=== PATIENT | male | born 2000 | race Caucasian/White ===

== ENCOUNTER 2022-08-24 11:26 | Emergency (ER) | payer OTHER, SELFPAY ==
--- NOTE | ~2022-08-24 | XR_ITS ---
XR chest 2V DATE: 08/24/2022 12:44 INDICATION: Nonproductive cough. Left-sided chest pain. Smoker. TECHNIQUE: 2 views COMPARISON: None FINDINGS: Normal heart size. No hilar or mediastinal enlargement. No pulmonary infiltrate or consolid ation, pleural effusion or pulmonary vascular congestion or pneumothorax is detected. Included skelet al structures appear normal. IMPRESSION: Negative Reviewed, dictated and finalized at location A. IMPRESSION: Negative
[2022-08-24 11:48] VITALS: BP 129/82; PULSE 102; RESP 16; TEMP 37.1; O2SAT 98
--- NOTE | 2022-08-24 11:51 | ED.GENADULT ---
HPI - General Adult General Chief complaint: Upper Respiratory Infection Stated complaint: Body aches /SOB Source: patient, family and RN notes reviewed History of Present Illness HPI narrative: 22 yo M presents to urgent care with sister at side. Pt states he has been having lower, left, sided chest pain that radiates to his left back. Pt states he typically drinks a 1/5 of whiskey daily since 2018 since his father . Pt states he quit drinking 9 days ago and was vomiting and having diarrhea which did resolve last week. Pt states he has been having cold sweats ever since. Pt reports the left sided chest pain is worse with deep inhalation and cough. Pt reports he is a violent puker and doesn't know if this pain is from that. Pt denies any abdominal pain. Pt states he had a sore throat last week but nothing since. Pt's father did of pancreatitis according to pt. Denies any leg pain or swelling. Related Data Home Medications Medication Instructions Recorded Confirmed No Home Medications 08/24/22 08/24/22 Allergies Allergy/AdvReac Type Severity Reaction Status Date / Time No Known Allergies Allergy Mild Verified 08/24/22 12:00 Review of Systems Review of Systems: Pertinent positives and pertinent negatives per HPI. PMFSH Comments At the time of my signature, I reviewed and agree with the nursing past medical, surgical, social, and family history. There is no relevant family history pertinent to the patient complaint. Exam Narrative: GENERAL: This is a well-nourished, well-developed patient, in no apparent distress. HEAD: normocephalic, atraumatic. EYES: Sclera clear/white. Vision is grossly intact. EARS: External ears normal, auditory canals clear and without drainage. Hearing grossly intact. NOSE: External nose normal with no obvious nasal discharge, nares without redness, no rhinorrhea. THROAT: Mucous membranes moist, posterior pharynx erythremic. NECK: Neck supple, non-tender without lymphadenopathy, masses or thyromegaly. CARDIOVASCULAR: Regular rate and rhythm without murmurs, gallops, or rubs. RESPIRATORY: Clear to auscultation. Breath sounds demonstrate mild wheezing to left anterior. GASTROINTESTINAL: Abdomen soft, non-tender, nondistended. Bowel sounds are active. No hepato-splenomegaly, or palpable masses. No guarding. SKIN: warm, intact with no suspicious lesions or rash, good texture and turgor. NEURO: awake, alert, and oriented to person, place and time. There were no obvious focal neurologic abnormalities. EXTREMITIES: No clubbing, cyanosis, or edema. No joint tenderness, effusion, or edema noted. BACK: Nontender without deformity or crepitus. No flank tenderness. Course Course Level of Care: Express Care Visit Vital Signs Vital signs: Vital Signs Temperature 98.8 F 08/24/22 11:48 Pulse Rate 102 H 08/24/22 11:48 Respiratory Rate 16 08/24/22 11:48 Blood Pressure 129/82 08/24/22 11:48 Pulse Oximetry 98 08/24/22 11:48 Oxygen Delivery Room Air 08/24/22 11:48 Temperature 98.8 F 08/24/22 11:48 Pulse Rate 102 H 08/24/22 11:48 Respiratory Rate 16 08/24/22 11:48 Blood Pressure 129/82 08/24/22 11:48 Pulse Oximetry 98 08/24/22 11:48 Oxygen Delivery Room Air 08/24/22 11:48 Reviewed Medical Decision Making MDM Narrative Medical decision making narrative: CXR is negative. Pt continues to take deep breaths intermittently while talking to him. Discussed reasons why ER transfer is recommended including PE and pancreatitis evaluation. Pt and sister agree to plan of care. VSS. Pt will be driven by sister. Differential Diagnosis Differential Diagnosis: PNA, PE, pancreatitis, pleurisy Vital Signs Vital Signs: Vital Signs Temperature 98.8 F 08/24/22 11:48 Pulse Rate 102 H 08/24/22 11:48 Respiratory Rate 16 08/24/22 11:48 Blood Pressure 129/82 08/24/22 11:48 Pulse Oximetry 98 08/24/22 11:48 Oxygen Delivery Elina
--- NOTE | 2022-08-24 12:43 | PC.NURSE ---
upon initial exam, sibling at bedside and aware of need for further f/u and was given referral booklet and sheets, sibling concerned with alcohol use and pancreatitis.
== END 2022-08-24 13:03 | disposition short-term general hospital (02) ==
PROVIDERS: Emergency Provider Nurse Practitioner Family
DX: R06.00 Dyspnea, unspecified (principal); F10.90 Alcohol use, unspecified, uncomplicated
CPT/HCPCS: 71046; 99213; G0463

== ENCOUNTER 2022-08-24 13:20 | Emergency (ER) | payer OTHER, SELFPAY ==
[2022-08-24] VITALS (29 sets, daily range): BP systolic 119–144; BP diastolic 76–92; PULSE 88–110; RESP 6–23; TEMP 36.8; O2SAT 95–100
--- NOTE | ~2022-08-24 | CT_ITS ---
EXAMINATION: CTA chest PE abdomen pel DATE: 08/24/2022 15:29 CDT INDICATION: Chest pain with inspiration. Rib pain. TECHNIQUE: Computed tomographic angiography (CTA) of the chest, abdomen, and pelvis was performed wit hout and with 100 mL Omnipaque-350 intravenous contrast. The dose-length product was 1497.51 mGy-cm. Maximum intensity projection 3D-reconstructions of the aorta and other arteries were constructed by juan pabon technologist on a separate workstation. Automated exposure control and iterative reconstruction te chelidiaque were employed. COMPARISON: None. FINDINGS: CHEST CTA: There is left lower lobe consolidation, consistent with pneumonia. No large central pulmonary embolis m. Heart size normal. No evidence for aortic aneurysm or dissection. No significant pleural or perica rdial effusion. There is mediastinal and left hilar lymphadenopathy, likely reactive.No endobronchial lesions. No pneumothorax. No acute osseous abnormality. Mild levoscoliosis of the lower thoracic spi ne. ABDOMEN AND PELVIS CTA: The liver, spleen, pancreas, adrenal glands and kidneys are unremarkable. No evidence for aortic aneu rysm. Nonobstructive bowel pattern. No free air or free fluid. Gallbladder is present. No abnormal pe lvic masses or fluid collections. There is an L4 limbus vertebra. IMPRESSION: 1. Left lower lobe pneumonia. Reviewed, dictated and finalized at location A.
--- NOTE | 2022-08-24 13:21 | ECG_ITS ---
Measurements Intervals Arthur Rate: 100 P: 48 SC: 145 QRS: 14 QRSD: 86 T: 10 QT: 325 QTc: 420 Interpretive Statements SINUS TACHYCARDIA POSSIBLE LEFT ATRIAL ENLARGEMENT [-0.1mV P-WAVE IN V1/V2] POSSIBLE RIGHT VENTRICULAR CONDUCTION DELAY [RSR (QR) IN V1/V2] ABNORMAL ECG NO PREVIOUS ECG AVAILABLE FOR COMPARISON Electronically Signed On 08-25-2022 9:08:42 CDT by Mark Rudd M.D.
--- NOTE | 2022-08-24 13:52 | ED.GENADULT ---
HPI - General Adult General Chief complaint: Chest Pain Stated complaint: chest pain Time Seen by Provider: 08/24/22 13:24 Source: patient and RN notes reviewed Mode of arrival: ambulatory Limitations: no limitations History of Present Illness HPI narrative: THis is a 22 year old male who presents for evaluation of left side abdominal pain. Patient states 9 days ago he developed flu like symptoms with nausea, vomiting, cough and body aches. HE has also been having left side abdominal pain as well. His pain is sharp and it is worse with breathing and coughing. He has been taking ibuprofen for his pain, and it has been relieving his pain until today. His pain is now constant. He has not had any nausea, vomiting, diarrhea in 7 days . He denies fever or chills. He states that his urine does seem dark. He reports his father of pancreatitis . He was drinking alcohol heavily until 9 days ago when he became sick. He has not had any alcohol in 9 days. He rates his pain 6/10. Related Data Allergies Allergy/AdvReac Type Severity Reaction Status Date / Time No Known Allergies Allergy Mild Verified 08/24/22 12:00 Review of Systems Constitutional: Constitutional: Denies weakness Cardiovascular: Cardiovascular: Denies syncope, Denies rapid heart rate, Denies irregular heart rhythm, Denies leg edema and Denies dyspnea Respiratory: Respiratory: Denies chest congestion, Reports cough, Denies hemoptysis, Denies excessive phlegm production and Denies dyspnea Gastrointestinal: Gastrointestinal: Reports abdominal pain, Denies hematochezia, Reports diarrhea, Reports nausea and Reports vomiting Genitourinary: Genitourinary: Denies hematuria, Denies dysuria, Denies penile discharge and Denies testicular pain Musculoskeletal: Musculoskeletal: Denies joint swelling, Denies loss of height and Denies muscle weakness Neurologic: Denies syncope, Denies focal weakness and Denies weakness PMFSH Past Medical History Medical History (Updated 08/24/22 @ 17:55 by Miranda Abarca MD) Patient denies medical problems Surgical History Surgical History (Updated 08/24/22 @ 13:57 by Miranda Abarca MD) No pertinent past surgical history Social History Social History (Updated 08/24/22 @ 13:57 by Miranda Abarca MD) Smoking status: Current every day smoker Alcohol intake: current Substance use type: marijuana Exam Const: General: no acute distress and alert Nutritional Appearance: well nourished Orientation/consciousness: patient oriented x3 HENMT: Head: normal to inspection Eyes: EOM: EOMs intact bilaterally Neck: Neck: normal visual inspection Chest: Chest palpation & inspection: normal inspection of the chest Resp: Effort & Inspection: normal respiratory effort Auscultation: clear to auscultation bilaterally Cardio: Rate: tachycardic Rhythm: regular rhythm Heart sounds: no murmurs GI: GI Palp: Yes Soft to palpation, No Tenderness to palpation present (GI), No Guarding due to palpation present (GI), No Rigid due to palpation and No Hernia present Auscultation: normal bowel sounds Back/Spine/Pelvis: Back: no CVA tenderness Skin: General skin exam: normal color Rashes: no rashes Neuro: General: patient oriented x3, moves all extremities and CN's II-XI intact bilaterally Extrem: General: normal to inspection Psych: Mental Status: mental status grossly normal Affect: normal affect Attitude: cooperative Course Reevaluation(s) Reevaluation #1: I discussed with patient and sister that he was found to have pneumonia. He feels comfortable with discharge home with pain medication and antibiotics. Given dose of rocephin and doxycycline in ER. Date: 08/24/22 Time: 17:54 Vital Signs Vital signs: Vital Signs Temperature 98.2 F 08/24/22 13:21 Pulse Rate 94 08/24/22 13:21 Respiratory Rate 18 08/24/22 13:21 Blood Pressure 133/81 08/24/22 13:21 Pulse Oximetry 100 08/24/22 13:21 Oxygen Delive
[2022-08-24] MEDS: MORPHINE SULFATE (*CRX) 4 MG/ML INJ IV PUSH (14:09)
[2022-08-24] MEDS: PANTOPRAZOLE SODIUM IV 40 MG VIAL IV PUSH (14:09)
[2022-08-24] MEDS: LACTATED RINGERS 1,000 ML 999 ML IV CONT (14:10)
[2022-08-24] MEDS: ONDANSETRON INJ 4 MG/2 ML VIAL IV PUSH (14:10)
[2022-08-24 14:25] LABS: Basophils Absolute Auto 0.1 K/mm3 (0.0-0.1); Basophils Percent Auto 0.7 % (0.2-1.2); Eosinophils Absolute Auto 0.4 K/mm3 (0-0.3); Eosinophils Percent Auto 3.9 % (0-4.4); Hematocrit 46.7 % (42.0-52.0); Hemoglobin 16.2 g/dL (14.0-18.0); Immature Granulocyte Absolute 0.08 K/mm3 (0.00-0.031); Immature Granulocyte Percent A 0.7 % (0-0.5); Lymphocytes Absolute Auto 1.18 K/mm3 (0.9-3.2); Mean Corpuscular HGB Conc 34.7 g/dl (32-36); Mean Corpuscular Volume 92.3 fl (80-100); Mean Platelet Volume 9.4 fl (7.4-10.4); Monocytes Absolute Auto 1.4 K/mm3 (0.1-0.6); Monocytes Percent Auto 13.2 % (2.6-8.5); Neutrophils Absolute Auto 7.5 K/mm3 (1.3-6.7); Neutrophils Percent Auto 70.5 % (45.5-73.1); Platelet Count Result 372 k/mm3 (150-375); Red Blood Count 5.06 M/mm3 (4.6-6.20); Red Cell Distribution Width 11.9 % (11.5-14.5); White Blood Count 10.7 K/mm3 (4.5-10.0)
[2022-08-24 14:36] LABS: Alanine Aminotransferase 47 U/L (6-50); Albumin Level 4.6 g/dL (3.5-5.1); Alkaline Phosphatase 70 U/L (38-126); Anion Gap 9 mmol/L (8-16); Aspartate Amino Transferase 34 U/L (17-59); Bilirubin,Total 0.9 mg/dL (0.2-1.3); Blood Urea Nitrogen 13 mg/dL (9-20); Calcium 9.4 mg/dL (8.4-10.2); Carbon Dioxide 31 mmol/L (22-30); Chloride 99 mmol/L (98-107); Estimated CRCL calculation 113 ml/min; Estimated Glomerular Filt Rate > 60; Glucose 92 mg/dL (65-110); Lipase 55 U/L (23-300); Magnesium 2.2 mg/dL (1.6-2.3); Sodium 139 mmol/L (137-145)
[2022-08-24 14:37] LABS: Lactic Acid Reflex 0.9 mmol/L (0.7-2.0)
[2022-08-24 14:41] LABS: Prothrombin Time 14.1 Seconds (11.1-14.7)
[2022-08-24 14:42] LABS: Partial Thromboplastin Time 36.9 SECONDS (22.3-36.8)
[2022-08-24 14:45] LABS: D Dimer 3.02 ug/mL (<0.48)
[2022-08-24 14:48] LABS: Troponin I < 0.012 ng/mL (0.000-0.034)
[2022-08-24 15:08] LABS: Influenza A QL RT-PCR Negative (Negative); Influenza B QL RT-PCR Negative (Negative); SARS-CoV-2 RNA PCR Negative (Negative)
[2022-08-24 16:12] LABS: Appearance Urine Clear (Clear); Bilirubin Urine Negative (Negative); Blood Urine Negative (Negative); Color Urine Yellow (Yellow); Glucose Urine UA Negative (Negative); Ketones Urine Trace mg/dL (Negative); Leukocyte Esterase Ur Negative LEU/UL (Negative); Nitrate Urine Negative (Negative); Protein Urine Negative (Negative); pH Urine 6.5 (5.0-9.0)
[2022-08-24 16:15] LABS: Add Urine Microscopic? NO; Specific Grav Ur 1.071 (1.001-1.035)
[2022-08-24] MEDS: IBUPROFEN 600 MG TABLET PO (16:34)
[2022-08-24] MEDS: HYDROcodone/acetaminophen (*CRX) 5-325 MG TABLET 1 TAB PO (16:35)
[2022-08-24] MEDS: DOXYCYCLINE HYCLATE 100 MG TABLET PO (17:25)
== END 2022-08-24 18:38 | disposition home or self-care (01) ==
PROVIDERS: Emergency Provider General Practice
DX: J18.9 Pneumonia, unspecified organism (principal); Z20.822 Contact with and (suspected) exposure to COVID-19; F17.210 Nicotine dependence, cigarettes, uncomplicated; R94.31 Abnormal electrocardiogram [ECG] [EKG]; R00.0 Tachycardia, unspecified
CPT/HCPCS: 36415; 71046; 71275; 74177; 80053; 81003; 83605; 83690; 83735; 84484; 85025; 85380; 85610; 85730; 87636; 93005; 96361; 96365; 96375; 99284; A9270; C9113; J0696; J2270; J2405; J7120; Q9967

== ENCOUNTER 2023-07-22 09:20 | Emergency (ER) | payer OTHER, SELFPAY ==
--- NOTE | 2023-07-22 09:23 | ED.GENADULT ---
HPI - General Adult General Chief complaint: Skin/Abscess/Foreign Body Stated complaint: allergic reaction on body Time Seen by Provider: 07/22/23 09:35 Source: patient, RN notes reviewed and old records reviewed Mode of arrival: ambulatory Limitations: no limitations History of Present Illness HPI narrative: 23-year-old male presents to the [facility] with a rash all over his body, face, arms chest aches. Patient states they were doing a burn pile and using of machete to cut up weeds and branches. Patient states he has been taking Benadryl with minimal relief. Denies any lip or tongue swelling. Denies any blurry vision or change in vision. Denies any chest pain or shortness of breath. Onset (ago): day(s) (2) Related Data Allergies Allergy/AdvReac Type Severity Reaction Status Date / Time No Known Allergies Allergy Mild Verified 07/22/23 09:40 Review of Systems Review of Systems: All systems reviewed & are unremarkable except as noted in HPI and below Constitutional: Constitutional: Reports no additional constitutional complaints Eyes: Eyes: Reports no additional eye complaints ENT: Reports system reviewed and no additional complaints, except as documented Cardiovascular: Cardiovascular: Reports no additional cardiovascular complaints, Denies chest pain and Denies dyspnea Respiratory: Respiratory: Reports no additional respiratory complaints, Denies chest congestion, Denies cough and Denies dyspnea Gastrointestinal: Gastrointestinal: Reports no additional gastrointestinal complaints, Denies abdominal pain, Denies nausea and Denies vomiting Musculoskeletal: Musculoskeletal: Reports no additional musculoskeletal complaints Integumentary/Breasts: Skin/Breast: Reports as per HPI, Denies swelling, Reports pruritus and Reports rash Neurologic: Reports system reviewed and no additional complaints, except as documented Psychiatric: Psychiatric: Reports no additional psychiatric complaints Allergic/Immunologic: Allergic/Immunologic: Reports no additional allergic/immunologic complaints [facility] Past Medical History Medical History Hearing loss in right ear History of arm fracture left humerus 2010 Surgical History Surgical History No pertinent past surgical history Family History Family History Mother No problems noted. Father Hypertension Diabetes mellitus Acute pancreatitis Mother Hypothyroidism Grandparent Mesothelioma Cardiac arrhythmia Hypertension Thyroid cancer Social History Social History Smoking status: Current every day smoker Tobacco type: e-cigarettes/vaping Alcohol intake: current Substance use: current Substance use type: marijuana Lack of Transportation: No Lack of Food: Never True Current Housing: I Have Housing Concerned About Future Housing: No Difficulty Paying Gas/Electric Bills: No Difficulty Paying for Meds: No Currently Unemployed: YES Education: High School Diploma/GED Difficulty w/ Childcare or Family Care: No Living arrangements: with family Occupation/Education: unemployed Gender identity (if verbalized by the patient): Male Sexual Orientation (if Verbalized by the Patient): Straight or Heterosexual Comments At the time of my signature, I reviewed and agree with the nursing past medical, surgical, social, and family history. There is no relevant family history pertinent to the patient complaint. Exam Const: General: cooperative, healthy appearing, comfortable, no acute distress, well developed, alert and well nourished Nutritional Appearance: well nourished Orientation/consciousness: patient oriented x3 Limitations: no limitations HENMT: Head: normal to inspection Ears: hearing grossly normal bi
[2023-07-22 09:27] VITALS: BP 131/78; PULSE 70; RESP 16; TEMP 37.5; O2SAT 100
[2023-07-22] MEDS: predniSONE 20 MG TABLET 60 MG PO (09:45)
== END 2023-07-22 10:02 | disposition home or self-care (01) ==
PROVIDERS: Emergency Provider Nurse Practitioner; PCP Emergency Medicine
DX: L50.9 Urticaria, unspecified (principal); L25.9 Unspecified contact dermatitis, unspecified cause; F17.290 Nicotine dependence, other tobacco product, uncomplicated; F12.90 Cannabis use, unspecified, uncomplicated
CPT/HCPCS: 99213; G0463; J7512